=== PATIENT | female | born 1990 | race Caucasian/White ===

== ENCOUNTER → 2018-06-17 | Outpatient (CLI) | payer OTHER ==
[2015-08-18 16:30] VITALS: BP 113/68
[~2018-06-17] MED LIST: NATURE'S BLEN1000 IU PO; PROVENTIL0.09 MG/A1; VALIUM5 M1 PO; VITAMIN B122500 MC1 PO; ZOFRAN4 M1 PO
== END ==
LOC: RAD 14:26
DX: H57.02 Anisocoria (principal)
CPT/HCPCS: A9585